=== PATIENT | female | born 1950 | race Caucasian/White ===

== ENCOUNTER → 2023-11-17 11:26 | Outpatient (REF) | payer MEDICARE, OTHER, SELFPAY | LOC: HWRAD 11:26 | PROVIDERS: ATTENDING PHYSICIAN Nurse Practitioner Adult Health; FAMILY PHYSICIAN Physician Assistant Medical | DX: J18.9 Pneumonia, unspecified organism (principal) | CPT/HCPCS: 71046 ==

== ENCOUNTER → 2024-01-26 12:54 | Outpatient (REF) | payer MEDICARE, OTHER, SELFPAY | LOC: WDC 12:54 | PROVIDERS: ATTENDING PHYSICIAN Obstetrics & Gynecology Gynecology; FAMILY PHYSICIAN Physician Assistant Medical; REFERRING PHYSICIAN Internal Medicine Endocrinology, Diabetes & Metabolism | DX: Z12.31 Encounter for screening mammogram for malignant neoplasm of breast (principal); Z78.0 Asymptomatic menopausal state | CPT/HCPCS: 77063; 77067; 77080 ==

== ENCOUNTER → 2024-04-24 12:58 | Outpatient (REF) | payer MEDICARE, OTHER, SELFPAY | LOC: EMG 12:58 | PROVIDERS: ATTENDING PHYSICIAN Orthopaedic Surgery Hand Surgery; FAMILY PHYSICIAN Physician Assistant Medical | DX: R20.2 Paresthesia of skin (principal) | CPT/HCPCS: 95886; 95911 ==

== ENCOUNTER 2024-06-20 10:04 | Day surgery (SDC) | payer MEDICARE, OTHER, SELFPAY ==
[2024-06-20] VITALS (10 sets, daily range): BP systolic 133–187; BP diastolic 80–105; BMI 26.9
[2024-06-20] MEDS: FLEXERIL 10 MG PO (13:29)
--- NOTE | 2024-06-20 14:11 | ITS.CL.ABL ---
Window Tinter - Ablation
Ablation
Procedure Report:
ELECTROPHYSIOLOGY ABLATION REPORT
Date of Procedure: June 20, 2024
Referring: Dr. Jer Snowden
INDICATION: Paroxysmal narrow complex tachycardia despite atenolol therapy
HISTORY: As above
PROCEDURE:
Baseline intracardiac measurements were obtained in sinus rhythm.��HRA, HIS, RVA and CS catheters were placed. 3D mapping with the [email or web address] mapping system was performed
Atrial decremental extrastimuli were delivered from the HRA and the CS.��Single and double extrastimuli as well as burst pacing were performed from both sites in both the baseline state and with isoproterenol infusion.��Atrial and AVN antegrade
ERP�s were determined.��Antegrade as well as retrograde AVN [place] CL�s were determined. Pacing from the Para-Hisian region and the RV septum as well as apical septum was performed.
MEASUREMENTS:
BASELINE
A-A:�800 ms
P-P:���800 ms
A-H:�86 ms
H-V����58 ms
P-R:���144 ms
QRS:�80 ms
QT:����380 ms
SNRT: Normal at 600 ms
AVN Wenckebach: Less than 400 ms
AVN Fast Pathway ERP: 600�3 20 ms
AVN Slow Pathway ERP: No evidence for slow pathway
HIS-Purkinje System: Normal; no distal block
Retrograde Conduction Decremental, no VA conduction at baseline. On isoproterenol rare VA conduction which was midline and decremental at approximately 640 ms
RVA ERP: Burst pacing at 604 100 ms did not induce any ventricular tachyarrhythmia
Direct ultrasound guidance was utilized for venous access.
Evidence for atrial tachycardia was inducibility with burst pacing at 280 to 320 ms from the ivett terminalis and from the Para-Hisian atrial region with a demonstrated and repetitive VA AV response with ventricular overdrive stimulation. There
was no evidence of slow pathway conduction. Without evidence of VA conduction at baseline and midline and decremental conduction on isoproterenol in combination with the VA AV response to ventricular overdrive pacing one of the quadripolar
catheters was removed and we utilized the multipolar catheter to map the right atrium. Earliest activation during the atrial tachycardia was at the His bundle region with a large distinct hiss recording at the area of earliest atrial activation
with a QS on the unipolar recording of the multipolar grid catheter. As such this demonstrated a focal atrial tachycardia from at or near the conduction system and as such ablation in this region would connote a extremely high pacemaker risk. As
such no ablation was performed and this was discussed with the patient post procedure. She then repetitively went into atrial fibrillation which required 2 cardioversions and IV metoprolol. She has no prior history of atrial fibrillation and has
upcoming surgeries which would require intubation of 1 coagulation and as such we did not address atrial fibrillation at this time. She has a family history in her father of atrial fibrillation but has not shown any atrial fibrillation on
outpatient monitoring.
SVT was initiated by atrial burst pacing on isoproterenol
SVT could be terminated by spontaneous or atrial burst pacing
The SVT cycle length was 400 ms.; SVT was well-tolerated hemodynamically.
After second cardioversion and IV metoprolol there was no further atrial fibrillation noted and isoproterenol was discontinued. Catheters were then removed from the right heart and manual compression was utilized for both venous access sites in the
right and left femoral veins.
COMPLICATIONS: None
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 After prolonged isoproterenol infusion the patient started having atrial fibrillation which required 2 cardioversions. She has not shown atrial fibrillation
clinically to date.
RECOMMENDATIONS:
1. Resume atenolol. Discussed with patient. She is uncomfortable with the side effects and we should consider low-dose flecainide 50 mg twice daily and perhaps change to calcium channel beatriz for her atrial tachycardia.
2. Could consider targeting of her atrial tachycardia although she would have to assume an approximate 25 to 50% chance of requiring permanent pacing. Also if she notes further atrial fibrillation we could consider pulmonary vein isolation
although she would require at least 3 months of oral anticoagulation for pulmonary vein isolation and she does have some upcoming surgeries. Ultimately if she has clinical atrial fibrillation we could bring her back for pulmonary vein isolation and
consideration of targeting the atrial tachycardia although as above and previously stated there is a high risk for permanent pacemaker implantation if the atrial tachycardia is addressed with ablation.
[2024-06-20] MEDS: PERCOCET 5/325 1 TABLET PO (15:11)
== END 2024-06-20 17:15 | disposition home or self-care (01) ==
LOC: CATH 10:04
PROVIDERS: ATTENDING PHYSICIAN Internal Medicine Cardiovascular Disease; FAMILY PHYSICIAN Physician Assistant Medical
DX: I47.19 Other supraventricular tachycardia (principal); I48.91 Unspecified atrial fibrillation; Z79.899 Other long term (current) drug therapy; Z79.52 Long term (current) use of systemic steroids
CPT/HCPCS: 93620; C1732; C1730; C1894; C1892; 93613; 93621; 93623

== ENCOUNTER → 2024-11-27 11:52 | Outpatient (REF) | payer MEDICARE, OTHER, SELFPAY | LOC: DHSLP 11:52 | PROVIDERS: ATTENDING PHYSICIAN Internal Medicine Critical Care Medicine; FAMILY PHYSICIAN Physician Assistant Medical | DX: G47.33 Obstructive sleep apnea (adult) (pediatric) (principal) | CPT/HCPCS: 95800 ==

== ENCOUNTER → 2024-12-12 08:49 | Outpatient (REF) | payer MEDICARE, OTHER, SELFPAY | LOC: RAD 08:49 | PROVIDERS: ATTENDING PHYSICIAN Specialist | DX: R10.11 Right upper quadrant pain (principal); R13.10 Dysphagia, unspecified | CPT/HCPCS: 74221; 76700 ==

== ENCOUNTER → 2025-02-06 18:39 | Outpatient (REF) | payer MEDICARE, OTHER, SELFPAY | LOC: WDC 18:39 | PROVIDERS: ATTENDING PHYSICIAN Obstetrics & Gynecology Gynecology; FAMILY PHYSICIAN Physician Assistant Medical | DX: Z12.31 Encounter for screening mammogram for malignant neoplasm of breast (principal) | CPT/HCPCS: 77063; 77067 ==

== ENCOUNTER 2025-03-21 06:18 | Day surgery (SDC) | payer MEDICARE, OTHER, SELFPAY | END 2025-03-21 09:16 | disposition home or self-care (01) | LOC: GI 06:18 | PROVIDERS: ATTENDING PHYSICIAN Specialist | DX: K22.2 Esophageal obstruction (principal); K44.9 Diaphragmatic hernia without obstruction or gangrene; K31.7 Polyp of stomach and duodenum; R13.10 Dysphagia, unspecified | CPT/HCPCS: 43249 ==